=== PATIENT | male | born 1970 | race African-American/Black ===

== ENCOUNTER 2025-01-11 01:01 | Emergency (ER) | payer MEDICAID ==
[2025-01-11] VITALS (12 sets, daily range): BP systolic 115; BP diastolic 64; PULSE 51–125; RESP 16–25; TEMP 36.7; O2SAT 97–100
[~2025-01-11] VITALS: Ht 182.9 cm; Wt 91.0 kg
[2025-01-11 01:41] LABS: BASOPHILS % 0.6 % (0.0-2.0); EOSINOPHILS % 0.6 % (0.0-5.0); HEMATOCRIT. 45.5 % (42.0-52.0); HEMOGLOBIN. 14.7 g/dL (14.0-18.0); LYMPHOCYTES % 46.4 % (20.0-50.0); MEAN CORPUSCULAR HEMOGLOBIN 29.8 pg (28.0-32.0); MEAN CORPUSCULAR HGB CONC 32.3 g/dL (31.0-37.0); MEAN CORPUSCULAR VOLUME 92.4 fL (80.0-94.0); MEAN PLATELET VOLUME 7.1 fl (7.4-10.4); MONOCYTES % 13.2 % (2.0-8.0); NEUTROPHILS % 39.2 % (40.0-76.0); PLATELET 326 x1000/uL (130-400); RED BLOOD CELL COUNT 4.93 mill/uL (4.7-6.1); WHITE BLOOD COUNT 10.7 x1000/uL (4.5-11.0)
[2025-01-11] MEDS: PIPERACILLIN/TAZO 3.375G/50ML 50 ML IV ONE (01:52)
[2025-01-11] MEDS: SODIUM CHLORIDE 0.9% (SEPSIS BOLUS) IV ONE (01:52)
[2025-01-11 01:55] LABS: CHLORIDE 100 mEq/L (98-107); POTASSIUM 3.9 mEq/L (3.5-5.1); SODIUM 137 mEq/L (136-145)
[2025-01-11 01:56] LABS: CALCIUM 9.5 mg/dL (8.7-10.4); CARBON DIOXIDE 26 mEq/L (21-32)
[2025-01-11 02:01] LABS: CREATININE 0.9 mg/dL (0.6-1.3); GLUCOSE 146 mg/dL (70-105)
[2025-01-11 02:02] LABS: TROPONIN I HIGH SENSITIVITY 6 ng/L (3.0-53); UREA NITROGEN BLOOD 9 mg/dL (9-23)
[2025-01-11 02:03] LABS: ALANINE AMINOTRANSFERASE 8 IU/L (10-49); ALBUMIN 4.3 g/dL (3.2-4.8); ASPARTATE AMINOTRANSFERASE 16 IU/L (<34); CREATINE KINASE 100 IU/L (46-171)
[2025-01-11 02:04] LABS: BILIRUBIN DIRECT 0.2 mg/dL (<=3.0); BILIRUBIN TOTAL 0.8 mg/dL (0.1-1.0); PROTEIN TOTAL 8.6 g/dL (6.0-8.3)
[2025-01-11 02:11] LABS: LACTIC ACID 2.7 mmol/L (0.4-2.0)
[2025-01-11 02:18] LABS: INR 1.1; PROTHROMBIN TIME 11.3 sec (9.6-11.0)
[2025-01-11] MEDS: VANCOMYCIN 1G PREMIX 200 ML IV ONE (02:27)
[2025-01-11] MEDS: MIDAZOLAM HCL 2 MG/2 ML VIAL IV ONE (03:27)
[2025-01-11] MEDS ORDERED: MIDAZOLAM 100MG/100ML PMX 100 ML IV PRN (03:30)
[2025-01-11] MEDS: ETOMIDATE 2MG/ML 10ML VIAL IV ONE (03:46)
[2025-01-11] MEDS: SUCCINYLCHOLINE CHLORIDE 200MG/10ML IV ONE (03:47)
[2025-01-11] MEDS: PROPOFOL 10MG/ML 100ML 100 ML IV ONE (03:49)
[2025-01-11] MEDS: MIDAZOLAM 100MG/100ML PMX 100 ML IV PRN (03:58)
[2025-01-11 04:15] LABS: BG BASE EXCESS -6.3 mmol/L (-2.0-3.0); BG CARBOXYHEMOGLOBIN 2.5 % (0.5-1.5); BG DEOXYHEMOGLOBIN 0.5 % (0.0-5.0); BG FRACTION INSPIRED OXYGEN 60; BG HCO3 ACT 19.2 mmol/L (21.0-28.0); BG METHEMOGLOBIN 0.1 % (0.5-1.5); BG OXYGEN SATURATION 99.5 % (94.0-98.0); BG OXYHEMOGLOBIN 96.9 % (94.0-98.0); BG PCO2 38.1 mmHg (35.0-48.0); BG PO2 203.6 mmHg (83.0-108.0); BG SAMPLE SITE RIGHT RADIAL; BG TOTAL HEMOGLOBIN 11.9 g/dL (13.5-17.5); BG VENT MODE VENT - AC
[2025-01-11] MEDS ORDERED: ONDANSETRON HCL 4MG/2ML INJ IV PRN (04:30)
[2025-01-11] MEDS: METHYLPREDNISOLONE SOD SUCC 125MG/2ML (ACT-O-VIAL) IV SCH (04:50)
[2025-01-11] MEDS: DEXT 5%/0.45% NACL 1000ML 1,000 ML IV SCH (04:50)
[2025-01-11 05:08] LABS: CLARITY URINE CLEAR (CLEAR); COLOR URINE YELLOW (YELLOW); GLUCOSE URINE NEGATIVE (NEGATIVE); KETONES URINE NEGATIVE (NEGATIVE); LEUKOCYTE ESTERASE URINE NEGATIVE (NEGATIVE); NITRITE URINE NEGATIVE (NEGATIVE); OCCULT BLOOD URINE NEGATIVE (NEGATIVE); PROTEIN URINE 1+ (NEGATIVE); SPECIFIC GRAVITY URINE 1.028 (1.005-1.030); UROBILINOGEN URINE 0.2 E.U./dL (0.2-1.0)
[2025-01-11] MEDS ORDERED: CLONIDINE 0.1MG TABLET NG PRN (05:15)
[2025-01-11 06:04] LABS: BACTERIA URINE NONE SEEN; RBC URINE NONE SEEN /hpf (0-2); SQUAMOUS EPITHELIAL CELL URINE NONE SEEN /lpf (RARE/1+); WBC URINE 0-2 /hpf (0-2)
[2025-01-11] MEDS: IOHEXOL-300 100 ML BOTTLE ONE (06:06)
[2025-01-11] MEDS ORDERED: FENTANYL 2500MCG/250ML PMX 250 ML IV PRN (06:15)
[2025-01-11] MEDS: FENTANYL CITRATE 2,500 MCG in SODIUM CHLORIDE 0.9% 200 ML IV PRN (07:08)
[2025-01-11] MEDS: ALBUTEROL (0.083%) 2.5MG/3ML NEB HHN SCH (08:18)
[2025-01-11] MEDS: BUDESONIDE 0.5MG/2ML NEB HHN SCH (08:18)
[2025-01-11] MEDS ORDERED: SODIUM CHLORIDE 0.9% 10ML FLUSH IVF ONE (10:28)
[2025-01-11] MEDS: PIPERACILLIN/TAZO 3.375G/50ML 100 ML IV SCH (11:24)
[2025-01-11] MEDS: VANCOMYCIN 1.25GM/250ML IV SCH (12:00)
[2025-01-11] MEDS ORDERED: NOREPINEPHRINE 8MG/250ML PMX 250 ML IV ONE (13:12)
[2025-01-11] MEDS: AZITHROMYCIN 500MG/250ML 250 ML IV SCH (13:47)
[2025-01-11] MEDS ORDERED: VANCOMYCIN 1.25GM/250ML IV SCH (15:00)
[2025-01-11] MEDS: NOREPINEPHRINE 8MG/250ML PMX 250 ML IV PRN (15:06)
[2025-01-11] MEDS: FENTANYL 2500MCG/250ML PMX 250 ML IV PRN (20:04)
[2025-01-11] MEDS: ENOXAPARIN 40MG/0.4ML SYR SUBCUT SCH (20:05)
[2025-01-12 00:49] LABS: INFLUENZA TYPE A Presumptive Negative (Pres. Neg.)
[2025-01-12 00:50] LABS: INFLUENZA TYPE B Presumptive Negative (Pres. Neg.)
[2025-01-12 00:52] LABS: RESPIRATORY SYNCYTIAL VIRUS Not Detected (Not Detectd)
[2025-01-12] MEDS ORDERED: PANTOPRAZOLE SODIUM 40 MG/VIAL IV SCH (09:00)
== END 2025-01-11 23:54 | disposition short-term general hospital (02) ==
LOC: ER 01:01 → EDBEDREQSVC 03:14 → CANBEDREQ 18:25 → ER 23:54
DX: J96.01 Acute respiratory failure with hypoxia (principal); J05.10 Acute epiglottitis without obstruction; J39.0 Retropharyngeal and parapharyngeal abscess; F17.200 Nicotine dependence, unspecified, uncomplicated; Z98.890 Other specified postprocedural states; Z79.899 Other long term (current) drug therapy
CPT/HCPCS: 80076; 80048; 81003; 82550; 83880; 83605; 85025; 85610; 87420; 87040; 87086; 84484; 87804 ×2; 36415; 84145; 71045; 70491; 76536; 94640; 82805; 82375; 31500; 94760; 93005; 94668; 96367; 96368; 96365; 96366; 96372; 96375; 99291; 99292; 36600; J3010; Q9967; J3370 ×2; J0456; J1650; J3490 ×2; J2919; J2250 ×2; J2543; J2704; J0330; Z7610 ×6; J7626; J7050; J7030; 94002; 94070; 94664